=== PATIENT | male | born 1990 | race Caucasian/White ===

== ENCOUNTER 2017-03-07 01:25 | Emergency (ER) | payer OTHER ==
[2017-03-07 01:31] VITALS: BP 145/89; PULSE 87; RESP 18; TEMP 97.8
[2017-03-07] MEDS ORDERED: KETOROLAC 60 MG/2 ML VIAL IM STA (01:41)
[2017-03-07] MEDS ORDERED: ACETAMINOPHEN TAB 500 MG TAB PO STA (01:41)
--- NOTE | 2017-03-07 01:48 | ED ---
General Adult HPI - General Chief complaint: Dental/Oral Stated complaint: Dental Pain Time Seen by Provider: 03/07/17 01:25 Source: patient, RN notes reviewed Mode of arrival: ambulatory Limitations: no limitations - History of Present Illness Initial comments: This is a 26-year-old male who presents to the emergency department stating that he needs his was obtained from removed. Patient states he has an appointment in 2 weeks but the pain is getting worse and he would like something to help with the pain. Patient states she's been using a lot of Orajel but it is not helping him much. Patient denies any fever chills patient denies any swelling. Patient denies any injury or trauma. - Related Data Previous Rx's Medication Instructions Recorded Hydrocodone/Acetaminophen [[place] 1 each PO Q4HR PRN #20 tab 03/07/17 5-325] Ibuprofen [Motrin] 600 mg PO Q6HR PRN #20 tab 03/07/17 Allergies Allergy/AdvReac Type Severity Reaction Status Date / Time Antihistamines - Alkylamine Allergy Severe Confusion Verified 03/07/17 01:32 Review of Systems ROS Statement: Those systems with pertinent positive or pertinent negative responses have been documented in the HPI. ROS Other: All systems not noted in ROS Statement are negative. Past Medical History Past Medical History: No Reported History History of Any Multi-Drug Resistant Organisms: None Reported Past Surgical History: No Surgical Hx Reported Past Psychological History: No Psychological Hx Reported Smoking Status: Never smoker Past Alcohol Use History: None Reported Past Drug Use History: None Reported General Exam - General Exam Comments Initial Comments: GENERAL Patient is well-developed and well-nourished. Patient is in mild distress. EYES Patient's pupils are equal and round. Extraocular motion is intact SKIN Unremarkable NEURO The patient is alert and oriented 3 PYSCH Patient has normal interpersonal interactions. Mouth Patient's was sent to them. Be breaking through the gums and they are tender to palpation. There is no area that is red or swollen there is no abscess formation noted. Limitations: no limitations Course Vital Signs 03/07/17 01:29 Temperature 97.8 F Pulse Rate 87 Respiratory 18 Rate Blood Pressure 145/89 O2 Sat by Pulse 98 Oximetry Disposition Clinical Impression: Toothache Disposition: HOME SELF-CARE Instructions: Toothache (ED) Additional Instructions: Patient should follow-up with a dentist as soon as possible. Patient should take Motrin 600 mg every 6 hours. Patient should take [place] as prescribed Prescriptions: Hydrocodone/Acetaminophen [[place] 5-325] 1 each PO Q4HR PRN #20 tab PRN Reason: Pain Ibuprofen [Motrin] 600 mg PO Q6HR PRN #20 tab PRN Reason: For pain Referrals: None,Stated [Primary Care Provider] - 1-2 days Time of Disposition: 01:47
== END 2017-03-07 02:05 | disposition home or self-care (01) ==
LOC: EC 01:25
DX: K08.89 Other specified disorders of teeth and supporting structures (principal); Z88.8 Allergy status to other drugs, medicaments and biological substances
CPT/HCPCS: 99282; 96372; J1885

== ENCOUNTER 2020-04-18 14:45 | Emergency (ER) | payer SELFPAY ==
[2020-04-18 15:03] VITALS: BP 133/91; PULSE 86; TEMP 98.7
[2020-04-18] MEDS ORDERED: cefTRIAXone 250 MG VIAL IM STA (15:05)
[2020-04-18] MEDS ORDERED: metroNIDAZOLE 500 MG TAB PO STA (15:05)
[2020-04-18] MEDS ORDERED: AZITHROMYCIN 500 MG TAB PO STA (15:05)
--- NOTE | 2020-04-18 15:22 | ED ---
Male Urogenital HPI - General Chief complaint: Urogenital Stated complaint: Medication Refill Time Seen by Provider: 04/18/20 15:04 Source: patient, RN notes reviewed, old records reviewed Mode of arrival: ambulatory Limitations: no limitations - History of Present Illness Initial comments: Patient is a 29-year-old male presents emergency room today with his partner who presents emergency department for concern for needing treated for Trichomonas. His girlfriend tested positive for Trichomonas. Patient states that he has had slight dysuria. He denies any lesions over the penis or testicular pain. Patient states that he has had no significant penile drainage. He reports that his partners tested for chlamydia and gonorrhea and were negative. - Related Data Previous Rx's Medication Instructions Recorded Hydrocodone/Acetaminophen [[place] 1 each PO Q4HR PRN #20 tab 03/07/17 5-325] Ibuprofen [Motrin] 600 mg PO Q6HR PRN #20 tab 03/07/17 metroNIDAZOLE [Flagyl] 500 mg PO BID #14 tab 04/18/20 Allergies Allergy/AdvReac Type Severity Reaction Status Date / Time Antihistamines - Alkylamine Allergy Severe Confusion Verified 04/18/20 15:02 Review of Systems ROS Statement: Those systems with pertinent positive or pertinent negative responses have been documented in the HPI. ROS Other: All systems not noted in ROS Statement are negative. Past Medical History Past Medical History: No Reported History History of Any Multi-Drug Resistant Organisms: None Reported Past Surgical History: No Surgical Hx Reported Past Psychological History: No Psychological Hx Reported Smoking Status: Never smoker Past Alcohol Use History: None Reported Past Drug Use History: None Reported General Exam - General Exam Comments Initial Comments: Laboratory 29-year-old male. Limitations: no limitations General appearance: alert, in no apparent distress Head exam: Present: atraumatic, normocephalic, normal inspection Eye exam: Present: normal appearance, PERRL, EOMI. Absent: scleral icterus, conjunctival injection, periorbital swelling ENT exam: Present: normal exam, mucous membranes moist Neck exam: Present: normal inspection. Absent: tenderness, meningismus, lymphadenopathy Respiratory exam: Present: normal lung sounds bilaterally. Absent: respiratory distress, wheezes, rales, rhonchi, stridor Cardiovascular Exam: Present: regular rate, normal rhythm, normal heart sounds. Absent: systolic murmur, diastolic murmur, rubs, gallop, clicks GI/Abdominal exam: Present: soft, normal bowel sounds. Absent: distended, tenderness, guarding, rebound, rigid Back exam: Present: normal inspection Neurological exam: Present: alert, oriented X3, CN II-XII intact Psychiatric exam: Present: normal affect Skin exam: Present: warm, dry, intact, normal color. Absent: rash Course Vital Signs 04/18/20 14:59 Temperature 98.7 F Pulse Rate 86 Respiratory 17 Rate Blood Pressure 133/91 O2 Sat by Pulse 97 Oximetry Medical Decision Making - Medical Decision Making Patient is a 29-year-old male presents emergency room today for concern for a treatment for Trichomonas. His partner tested positive. His complaint of some mild dysuria. Urinalysis completed. Patient was treated for all STDs given Rocephin Flagyl and azithromycin emergency department. Ms. discharging them Patient on Flagyl 500 twice a day for the next week as well and advised to stop or not have intercourse for a week until after completing treatment. - Lab Data Lab Results 04/18/20 Range/Units 15:08 Urine Color Yellow Urine Appearance Clear (Clear) Urine pH 6.0 (5.0-8.0) Ur Specific [place] 1.023 (1.001-1.035) Urine Protein 1+ H (Negative) Urine Glucose (UA) Negative (Negative) Urine Ketones 3+ H (Negative) Urine Blood Negative (Negative) Urine Nitrite Negative (Negative) Urine Bilirubin 1+ H (Negative) Urine Urobilinogen 2.0 (<2.0) mg/dL Ur Leukocyte Esterase Small H (Negative) Urine RBC 2 (0-5) /hpf Urine WBC 13 H (0-5) /hpf Ur Squamous Epith Cells <1 (0-4) /hpf Urine Bacteria Rare H (None) /hpf Hyaline Casts 6 H (0-2) /lpf Urine Mucus Occasional H (None) /hpf Disposition Clinical Impression: Trichomonas contact Disposition: HOME SELF-CARE Condition: Good Instructions (If sedation given, give patient instructions): Trichomoniasis (ED) Additional Instructions: Patient is to take the entire course of antibiotics as prescribed. Recommended following up with primary care doctor if symptoms continue persist. Patient should not have intercourse for a week until completed treatment. Prescriptions: metroNIDAZOLE [Flagyl] 500 mg PO BID #14 tab Is patient prescribed a controlled substance at d/c from ED?: No Referrals: Mariano Hummel MD [Primary Care Provider] - 1-2 days Time of Disposition: 15:22
[2020-04-18 15:28] LABS: Appearance,Urine Clear (Clear); Bacteria,Urine Rare /hpf; Bilirubin,Urine 1+ (Negative); Blood,Urine Negative (Negative); Color,Urine Yellow; Glucose,Urine (UA) Negative (Negative); Hyaline Casts,Urine 6 /lpf (0-2); Ketones,Urine 3+ (Negative); Leukocyte Esterase,Urine Small (Negative); Mucus,Urine Occasional /hpf; Nitrite,Urine Negative (Negative); Protein,Urine 1+ (Negative); RBC,Urine 2 /hpf (0-5); Specific Gravity,Urine 1.023 (1.001-1.035); Squamous Epithelial Cell,Urine <1 /hpf (0-4); WBC,Urine 13 /hpf (0-5)
[2020-04-18 15:46] VITALS: RESP 20
== END 2020-04-18 15:46 | disposition home or self-care (01) ==
LOC: EC 14:45
DX: Z20.2 Contact with and (suspected) exposure to infections with a predominantly sexual mode of transmission (principal); R30.0 Dysuria; Z88.8 Allergy status to other drugs, medicaments and biological substances
CPT/HCPCS: 81001; 87491; 87591; 99283; 96372; J0696

== ENCOUNTER 2025-01-23 11:10 | Emergency (ER) | payer BC, OTHER ==
[2025-01-23] MEDS: ACETAMINOPHEN TAB 500 MG TAB PO STA (12:19)
[2025-01-23] MEDS: IBUPROFEN 800 MG TAB PO STA (12:20)
--- NOTE | 2025-01-23 14:31 | XR ---
EXAMINATION TYPE: XR knee complete LT DATE OF EXAM: 01/23/2025 2:08 PM COMPARISON: None CLINICAL INDICATION: Male, 34 years old with history of pain. lateral knee; PHH, pain TECHNIQUE: XR knee complete LT 3 views submitted. FINDINGS: No evidence of any acute osseous pathology, soft tissue swelling, or joint effusion is no fela. IMPRESSION: No acute osseous pathology. [facility], , 01/23/2025 2:28 PM
--- NOTE | 2025-01-23 14:44 | ED ---
General Adult HPI - General Chief complaint: Extremity Injury, Lower Stated complaint: [facility]-left knee injury Time Seen by Provider: 01/23/25 11:55 Source: patient, RN notes reviewed, old records reviewed Mode of arrival: ambulatory Limitations: no limitations - History of Present Illness Initial comments: Patient is a 34-year-old male who presents emergency department complaining of left knee pain. 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 No other injuries. Is concerned that he injured him and presents for further evaluation.States the pain is over the lateral aspect of the left knee. Normal range of motion but no significant pain with motion. - Related Data Previous Rx's Medication Instructions Recorded Hydrocodone/Acetaminophen [[place] 1 each PO Q4HR PRN #20 tab 03/07/17 5-325] Ibuprofen [Motrin] 600 mg PO Q6HR PRN #20 tab 03/07/17 metroNIDAZOLE [Flagyl] 500 mg PO BID #14 tab 04/18/20 Acetaminophen [Tylenol Extra 500 mg PO Q6H PRN 7 Days #28 packet 01/23/25 Strength] Ibuprofen [Motrin] 600 mg PO Q6HR PRN 7 Days #28 tab 01/23/25 Allergies Allergy/AdvReac Type Severity Reaction Status Date / Time Antihistamines - Alkylamine Allergy Severe Confusion Verified 01/23/25 11:22 Review of Systems ROS Statement: Those systems with pertinent positive or pertinent negative responses have been documented in the HPI. Review of Systems: CONST: Denies fever EYES: Denies blurry vision ENT: Denies nasal congestion C/V: Denies Chest pain RESP: Denies shortness of breath GI: Denies abdominal pain : Denies dysuria SKIN: Denies rash. MSK: Endorses left knee pain NEURO: Denies headache ROS Other: All systems not noted in ROS Statement are negative. Past Medical History Past Medical History: No Reported History History of Any Multi-Drug Resistant Organisms: None Reported Past Surgical History: No Surgical Hx Reported Past Psychological History: No Psychological Hx Reported Smoking Status: Never smoker Past Alcohol Use History: None Reported Past Drug Use History: None Reported General Exam - General Exam Comments Initial Comments: General: Appears in no acute distress. HEAD: Normal with no signs of head trauma. EYES: EOMI. ENT: Hearing grossly intact. RESPIRATORY: No respiratory distress. C/V: Regular rate and rhythm. ABD: Abdomen is nondistended. EXT: No obvious deformity. Normal range of motion. Able to hold the left knee in full extension. Tenderness palpation of the lateral aspect of the left knee. Pain with full flexion and full extension. Still able ambulate and bear weight. SKIN: No rashes or lesions observed on exposed skin. NEURO: Alert and oriented. Limitations: no limitations Course Vital Signs 01/23/25 01/23/25 11:20 14:54 Temperature 98.2 F 98.1 F Pulse Rate 89 80 Respiratory 20 18 Rate Blood Pressure 123/75 125/81 O2 Sat by Pulse 96 97 Oximetry Medical Decision Making - Medical Decision Making Was pt. sent in by a medical professional or institution (, PA, ALLERGY NURSE, urgent care, hospital, or long-term...) When possible be specific @ -No Did you speak to anyone other than the patient for history (EMS, parent, family, police, friend...)? What history was obtained from this source @ -No Did you review nursing and triage notes (agree or disagree)? Why? @ -I reviewed and agree with nursing and triage notes Were old charts reviewed (outside hosp., previous admission, EMS record, old EKG, old radiological studies, urgent care reports/EKG's, long-term records)? Report findings @ -No old charts were reviewed Differential Diagnosis (chest pain, altered mental status, abdominal pain women, abdominal pain men, vaginal bleeding, weakness, fever, dyspnea, syncope, headache, dizziness, GI bleed, back pain, seizure, CVA, palpatations, mental health, musculoskeletal)? @ -Differential Musculoskeletal Muscular strain, contusion, ligament sprain, fracture, arthritis, septic arthritis, bursitis, cellulitis, muscle spasm, nerve compression, DVT, arterial occlusion, herpes zoster, electrolyte abnormality, tumor.... This is not meant to be in all inclusive list EKG interpreted by me (3pts min.). @ -None done X-rays interpreted by me (1pt min.). @ -Knee x-ray negative for any obvious acute injury CT interpreted by me (1pt min.). @ -None done U/S interpreted by me (1pt. min.). @ -None done What testing was considered but not performed or refused? (CT, X-rays, U/S, labs)? Why? @ -None What meds were considered but not given or refused? Why? @ -None Did you discuss the management of the patient with other professionals (professionals i.e. , PA, ALLERGY NURSE, lab, RT, psych nurse, social services counselor, outboard motor tester, teacher, special assets officer, supervisor case loading)? Give summary @ -No Was smoking cessation discussed for >3mins.? @ -No Was critical care preformed (if so, how long)? @ -No Were there social determinants of health that impacted care today? How? (Homelessness, low income, unemployed, alcoholism, drug addiction, [employer], low edu. Level, literacy, decrease access to med. care, fdc, rehab)? @ -No Was there de-escalation of care discussed even if they declined (Discuss DNR or withdrawal of care, Hospice)? DNR status @ -No What co-morbidities impacted this encounter? (DM, HTN, Smoking, COPD, CAD, Cancer, CVA, ARF, Chemo, Hep., AIDS, mental health diagnosis, sleep apnea, morbid obesity)? @ -None Was patient admitted / discharged? Hospital course, mention meds given and route, prescriptions, significant lab abnormalities, going to OR and other pertinent info. @ -Based on patient's presentation and physical exam, presents with left knee pain. We obtain x-rays. Vitals are within acceptable limits. Patient administered analgesia medications. X-ray showed no obvious acute injury. I discussed results with the patient. He will be given a knee immobilizer. He already has a cane. Recommended weight- bear as tolerated and follow-up with orthopedic surgery if symptoms or not improved in few weeks. He was in agreement this plan. Strict return precautions discussed. I instructed the patient to follow up with their PCP in the next 1-3 days. . I explained that the patient should return to the emergency department if they experience any worsening symptoms. Strict return precautions were discussed with the patient. The patient expressed understanding of these instructions. I answered all questions that the patient had. The patient was discharged home in good condition with their prescriptions and follow up information. Undiagnosed new problem with uncertain prognosis? @ -No Drug Therapy requiring intensive monitoring for toxicity (Heparin, Nitro, Insulin, Cardizem)? @ -No Were any procedures done? @ -No Diagnosis/symptom? @ -Left knee sprain Acute, or Chronic, or Acute on Chronic? @ -Acute Uncomplicated (without systemic symptoms) or Complicated (systemic symptoms)? @ -Uncomplicated Side effects of treatment? @ -No Exacerbation, Progression, or Severe Exacerbation? @ -No Poses a threat to life or bodily function? How? (Chest pain, [place], [place], pneumonia, PE, COPD, DKA, ARF, appy, cholecystitis, CVA, Diverticulitis, Homicidal, Suicidal, threat to staff... and all critical care pts) @ -Unlikely at this time Disposition Clinical Impression: Left knee sprain Disposition: HOME SELF-CARE Condition: Good Instructions (If sedation given, give patient instructions): Knee Sprain (ED) Additional Instructions: Your diagnosis is a left knee sprain. He has knee immobilizer as needed for stability of the knee with ambulation. Use the cane that you have at home to help with ambulation. If your symptoms are improving, no need for follow-up with orthopedic surgery however if you feel like they are not improving, you can reach out to them at the middle to the end of next week. Return to the ER for any worsening symptoms. Prescriptions: Ibuprofen [Motrin] 600 mg PO Q6HR PRN 7 Days #28 tab PRN Reason: Pain Acetaminophen [Tylenol Extra Strength] 500 mg PO Q6H PRN 7 Days #28 packet PRN Reason: Pain Is patient prescribed a controlled substance at d/c from ED?: No Referrals: Nonstaff,Physician [Primary Care Provider] - 1-2 days Venecia Solano DO [Doctor of Osteopathic Medicine] - 1-2 days Time of Disposition: 14:43
[2025-01-23 14:55] VITALS: BP 125/81; PULSE 80; RESP 18; TEMP 98.1
== END 2025-01-23 14:55 | disposition home or self-care (01) ==
LOC: EC 11:10
DX: S83.92XA Sprain of unspecified site of left knee, initial encounter (principal); Z88.8 Allergy status to other drugs, medicaments and biological substances; X50.1XXA Overexertion from prolonged static or awkward postures, initial encounter; Y99.0 Civilian activity done for income or pay
CPT/HCPCS: 73562; 99283; L1830

== ENCOUNTER 2025-01-31 07:49 | Emergency (ER) | payer BC, OTHER ==
[2025-01-31 07:55] VITALS: BP 140/78; PULSE 91; RESP 20; TEMP 97.9
--- NOTE | 2025-01-31 08:29 | ED ---
General Adult HPI - General Chief complaint: Extremity Injury, Lower Stated complaint: Left knee complications, anxiety Time Seen by Provider: 01/31/25 07:56 Source: patient, RN notes reviewed Mode of arrival: ambulatory Limitations: no limitations - History of Present Illness Initial comments: Patient is a 34-year-old male present to the emergency department with concerns for left knee pain. Patient did twist his knee at work a week ago and had a fall. Patient is having some discomfort of the knee still. Discomfort is rated 1 at rest and 3 with movement. Patient has been using a compression stocking. Patient did research on the Internet and was concerned he may have an aneurysm. Patient became very anxious and had a panic attack that brought him in. Patient states he was very anxious when he got here. Patient states this has resolved and he is no longer feeling anxious. Patient does have a family history of brain aneurysms. Discomfort is left anterior knee. - Related Data Previous Rx's Medication Instructions Recorded Hydrocodone/Acetaminophen [[place] 1 each PO Q4HR PRN #20 tab 03/07/17 5-325] Ibuprofen [Motrin] 600 mg PO Q6HR PRN #20 tab 03/07/17 metroNIDAZOLE [Flagyl] 500 mg PO BID #14 tab 04/18/20 Acetaminophen [Tylenol Extra 500 mg PO Q6H PRN 7 Days #28 packet 01/23/25 Strength] Ibuprofen [Motrin] 600 mg PO Q6HR PRN 7 Days #28 tab 01/23/25 Allergies Allergy/AdvReac Type Severity Reaction Status Date / Time Antihistamines - Alkylamine Allergy Severe Confusion Verified 01/31/25 07:55 Review of Systems ROS Statement: Those systems with pertinent positive or pertinent negative responses have been documented in the HPI. ROS Other: All systems not noted in ROS Statement are negative. Constitutional: Denies: fever Eyes: Denies: eye pain ENT: Denies: ear pain Respiratory: Denies: dyspnea Cardiovascular: Denies: chest pain Musculoskeletal: Reports: as per HPI Past Medical History Past Medical History: No Reported History History of Any Multi-Drug Resistant Organisms: None Reported Past Surgical History: No Surgical Hx Reported Additional Past Surgical History / Comment(s): Right ankle surgery Past Psychological History: No Psychological Hx Reported Smoking Status: Never smoker Past Alcohol Use History: None Reported Past Drug Use History: None Reported General Exam Limitations: no limitations General appearance: alert, in no apparent distress Head exam: Present: normocephalic Eye exam: Present: normal appearance Neck exam: Present: normal inspection Respiratory exam: Present: normal lung sounds bilaterally Cardiovascular Exam: Present: regular rate, normal rhythm Expanded Peripheral pulses: 2+: Posterior Tibialis (L), Dorsalis Pedis (L) Extremities exam: Present: tenderness (Mild tenderness left anterior knee in the region of the medial meniscus. No posterior tenderness.), other (Distally the extremity is neurovascular intact). Absent: calf tenderness Neurological exam: Present: alert. Absent: motor sensory deficit Psychiatric exam: Present: normal affect, normal mood Skin exam: Present: normal color Course Vital Signs 01/31/25 07:51 Temperature 97.9 F Pulse Rate 91 Respiratory 20 Rate Blood Pressure 140/78 O2 Sat by Pulse 91 L Oximetry Medical Decision Making - Medical Decision Making Was pt. sent in by a medical professional or institution (, PA, FINANCIAL WELLNESS COACH, urgent care, hospital, or fpc...) When possible be specific @ -No Did you speak to anyone other than the patient for history (EMS, parent, family, police, friend...)? What history was obtained from this source @ -No Did you review nursing and triage notes (agree or disagree)? Why? @ -I reviewed and agree with nursing and triage notes Were old charts reviewed (outside hosp., previous admission, EMS record, old EKG, old radiological studies, urgent care reports/EKG's, fpc records)? Report findings @ -Previous visit reviewed including x-ray results Differential Diagnosis (chest pain, altered mental status, abdominal pain women, abdominal pain men, vaginal bleeding, weakness, fever, dyspnea, syncope, headache, dizziness, GI bleed, back pain, seizure, CVA, palpatations, mental health, musculoskeletal)? @ -Differential Musculoskeletal Muscular strain, contusion, ligament sprain, fracture, arthritis, septic arthritis, bursitis, cellulitis, muscle spasm, nerve compression, DVT, arterial occlusion, herpes zoster, electrolyte abnormality, tumor.... This is not meant to be in all inclusive list EKG interpreted by me (3pts min.). @ -As above X-rays interpreted by me (1pt min.). @ -None done CT interpreted by me (1pt min.). @ -None done U/S interpreted by me (1pt. min.). @ -None done What testing was considered but not performed or refused? (CT, X-rays, U/S, labs)? Why? @ -Considered x-rays however these were just done recently. No new injury. What meds were considered but not given or refused? Why? @ -None Did you discuss the management of the patient with other professionals (professionals i.e. Dr., PA, FINANCIAL WELLNESS COACH, lab, RT, psych nurse, social media marketer, paperhanger supervisor, teacher, armed custom protection officer, behavioral health case manager)? Give summary @ -No Was smoking cessation discussed for >3mins.? @ -No Was critical care preformed (if so, how long)? @ -No Were there social determinants of health that impacted care today? How? (Homelessness, low income, unemployed, alcoholism, drug addiction, transportation, low edu. Level, literacy, decrease access to med. care, residential, rehab)? @ -No Was there de-escalation of care discussed even if they declined (Discuss DNR or withdrawal of care, Hospice)? DNR status @ -No What co-morbidities impacted this encounter? (DM, HTN, Smoking, COPD, CAD, Cancer, CVA, ARF, Chemo, Hep., AIDS, mental health diagnosis, sleep apnea, morbid obesity)? @ -None Was patient admitted / discharged? Hospital course, mention meds given and route, prescriptions, significant lab abnormalities, going to OR and other pertinent info. @ -Patient presents with left knee discomfort and anxiety attack. Evaluation consistent with patient's history of injury and I also have concern for possible meniscus injury. No signs or concerns for aneurysm. Distal pulses intact. Area of discomfort is not in the area of arterial flow. Patient will be discharged with recommended continued follow-up with [facility] Undiagnosed new problem with uncertain prognosis? @ -No Drug Therapy requiring intensive monitoring for toxicity (Heparin, Nitro, Insulin, Cardizem)? @ -No Were any procedures done? @ -No Diagnosis/symptom? @ -Left knee pain Acute, or Chronic, or Acute on Chronic? @ -Acute Uncomplicated (without systemic symptoms) or Complicated (systemic symptoms)? @ -Default Side effects of treatment? @ -No Exacerbation, Progression, or Severe Exacerbation? @ -No Poses a threat to life or bodily function? How? (Chest pain, [place], [place], pneumonia, PE, COPD, DKA, ARF, appy, cholecystitis, CVA, Diverticulitis, Homicidal, Suicidal, threat to staff... and all critical care pts) @ -No Disposition Clinical Impression: Left knee injury Disposition: HOME SELF-CARE Condition: Stable Instructions (If sedation given, give patient instructions): Knee Sprain (ED) Additional Instructions: Ice to affected area. [id number] Motrin if needed. Please follow-up with [facility] as directed. Return for increased pain, swelling, worsening or changing symptoms or other concerns. Is patient prescribed a controlled substance at d/c from ED?: No Referrals: None,Stated [Primary Care Provider] - 1-2 days Forms: Area PCPs Time of Disposition: 08:29
== END 2025-01-31 09:14 | disposition home or self-care (01) ==
LOC: EC 07:49
DX: S89.92XA Unspecified injury of left lower leg, initial encounter (principal); F41.0 Panic disorder [episodic paroxysmal anxiety]; Z88.8 Allergy status to other drugs, medicaments and biological substances; W01.0XXA Fall on same level from slipping, tripping and stumbling without subsequent striking against object, initial encounter
CPT/HCPCS: 99283

== ENCOUNTER 2025-05-17 16:00 | Emergency (ER) | payer SELFPAY ==
[2025-05-17 16:24] VITALS: RESP 18
--- NOTE | 2025-05-17 17:44 | ED ---
Skin/Abscess/FB HPI - General Chief complaint: Skin/Abscess/Foreign Body Stated complaint: Rash Time Seen by Provider: 05/17/25 17:39 Source: patient, RN notes reviewed Mode of arrival: ambulatory Limitations: no limitations - History of Present Illness Initial comments: 34-year-old male presenting for rash on bilateral palms of hands and soles of feet x 1 day with associated sore throat. States he was exposed to napf-nkxh-unl-mouth. Reports pain and itching to the bilateral hands and feet. Denies difficulty breathing or swallowing. - Related Data Previous Rx's Medication Instructions Recorded Hydrocodone/Acetaminophen [Jackson 1 each PO Q4HR PRN #20 tab 03/07/17 5-325] Ibuprofen [Motrin] 600 mg PO Q6HR PRN #20 tab 03/07/17 metroNIDAZOLE [Flagyl] 500 mg PO BID #14 tab 04/18/20 Acetaminophen [Tylenol Extra 500 mg PO Q6H PRN 7 Days #28 packet 01/23/25 Strength] Ibuprofen [Motrin] 600 mg PO Q6HR PRN 7 Days #28 tab 01/23/25 Hydrocortisone Cream 1 applic TOPICAL BID #28 gm 05/17/25 [Hydrocortisone 2.5% Cream] Allergies Allergy/AdvReac Type Severity Reaction Status Date / Time Antihistamines - Alkylamine Allergy Severe Confusion Verified 05/17/25 16:24 Review of Systems ROS Statement: Those systems with pertinent positive or pertinent negative responses have been documented in the HPI. ROS Other: All systems not noted in ROS Statement are negative. Past Medical History Past Medical History: No Reported History History of Any Multi-Drug Resistant Organisms: None Reported Past Surgical History: No Surgical Hx Reported Additional Past Surgical History / Comment(s): Right ankle surgery Past Psychological History: No Psychological Hx Reported Smoking Status: Never smoker Past Alcohol Use History: None Reported Past Drug Use History: None Reported General Exam Limitations: no limitations General appearance: alert, in no apparent distress Head exam: Present: atraumatic, normocephalic, normal inspection Eye exam: Present: normal appearance, PERRL, EOMI. Absent: scleral icterus, conjunctival injection, periorbital swelling ENT exam: Present: normal exam, normal oropharynx, mucous membranes moist Neck exam: Present: normal inspection. Absent: tenderness, meningismus, lymphadenopathy Respiratory exam: Present: normal lung sounds bilaterally. Absent: respiratory distress, wheezes, rales, rhonchi, stridor Cardiovascular Exam: Present: regular rate, normal rhythm, normal heart sounds. Absent: systolic murmur, diastolic murmur, rubs, gallop, clicks Neurological exam: Present: alert, oriented X3 Psychiatric exam: Present: normal affect, normal mood Skin exam: Present: warm, dry, intact, normal color, rash (Maculopapular rash present on palms of hands and soles of feet) Course Vital Signs 05/17/25 05/17/25 16:20 18:01 Temperature 98.7 F 98.2 F Pulse Rate 101 H 96 Respiratory 18 18 Rate Blood Pressure 141/84 136/80 O2 Sat by Pulse 94 L 96 Oximetry Medical Decision Making - Medical Decision Making Was pt. sent in by a medical professional or institution (, PA, BICYCLE MECHANIC, urgent care, hospital, or [facility]...) When possible be specific @ -No Did you speak to anyone other than the patient for history (EMS, parent, family, police, friend...)? What history was obtained from this source @ -No Did you review nursing and triage notes (agree or disagree)? Why? @ -I reviewed and agree with nursing and triage notes Were old charts reviewed (outside hosp., previous admission, EMS record, old EKG, old radiological studies, urgent care reports/EKG's, [facility] records)? Report findings @ -No old charts were reviewed Differential Diagnosis (chest pain, altered mental status, abdominal pain women, abdominal pain men, vaginal bleeding, weakness, fever, dyspnea, syncope, headache, dizziness, GI bleed, back pain, seizure, CVA, palpatations, mental health, musculoskeletal)? @ -Viral upper respiratory infection, strep pharyngitis, rrpv-qfoe-kdb-mouth, contact dermatitis EKG interpreted by me (3pts min.). @ -None X-rays interpreted by me (1pt min.). @ -None done CT interpreted by me (1pt min.). @ -None done U/S interpreted by me (1pt. min.). @ -None done What testing was considered but not performed or refused? (CT, X-rays, U/S, labs)? Why? @ -Offered viral testing however patient refuses What meds were considered but not given or refused? Why? @ -None Did you discuss the management of the patient with other professionals (professionals i.e. , PA, BICYCLE MECHANIC, lab, RT, psych nurse, manager social services, sales planning analyst, teacher, aoc airspace control officer, registered nurse hh case manager)? Give summary @ -No Was smoking cessation discussed for >3mins.? @ -No Was critical care preformed (if so, how long)? @ -No Were there social determinants of health that impacted care today? How? (Homelessness, low income, unemployed, alcoholism, drug addiction, transpo rtation, low edu. Level, literacy, decrease access to med. care, senior care, rehab)? @ -No Was there de-escalation of care discussed even if they declined (Discuss DNR or withdrawal of care, Hospice)? DNR status @ -No What co-morbidities impacted this encounter? (DM, HTN, Smoking, COPD, CAD, Cancer, CVA, ARF, Chemo, Hep., AIDS, mental health diagnosis, sleep apnea, morbid obesity)? @ -None Was patient admitted / discharged? Hospital course, mention meds given and route, prescriptions, significant lab abnormalities, going to OR and other pertinent info. @ -Discharge. 34-year-old male presenting for rash to bilateral hands and feet x 1 day with associated sore throat. States he was exposed to orba-odqu-eok-mouth. History and physical examination consistent with jzsi-lgiq-wgz-mouth. Patient is also requesting gabapentin for "cazb-wuu-fuwvxii" in bilateral lower extremities. Patient was given 1 dose of gabapentin in the ER however directed to follow-up with PCP. Prescribed steroid cream to use as needed for hand/feet itchiness. Appropriate return precautions and supportive care discussed. Case was discussed with my ED attending Dr. Ryder Undiagnosed new problem with uncertain prognosis? @ -No Drug Therapy requiring intensive monitoring for toxicity (Heparin, Nitro, Insulin, Cardizem)? @ -No Were any procedures done? @ -No Diagnosis/symptom? @ -Hqsf-kpov-mde-mouth disease Acute, or Chronic, or Acute on Chronic? @ -Acute Uncomplicated (without systemic symptoms) or Complicated (systemic symptoms)? @ -Uncomplicated Side effects of treatment? @ -No Exacerbation, Progression, or Severe Exacerbation? @ -No Poses a threat to life or bodily function? How? (Chest pain, [place], [place], pneumonia, PE, COPD, DKA, ARF, appy, cholecystitis, CVA, Diverticulitis, Homicidal, Suicidal, threat to staff... and all critical care pts) @ -No Disposition Clinical Impression: Hand, foot and mouth disease Disposition: HOME SELF-CARE Condition: Stable Instructions (If sedation given, give patient instructions): Hand, Foot, and Mouth Disease (ED) Additional Instructions: Apply steroid cream to the affected areas. Please follow-up with your PCP as discussed. Take ibuprofen or Tylenol as needed for pain. Please return to the Emergency Department if symptoms worsen or any other concerns. Prescriptions: Hydrocortisone Cream [Hydrocortisone 2.5% Cream] 1 applic TOPICAL BID #28 gm Is patient prescribed a controlled substance at d/c from ED?: No Referrals: Nonstaff,Physician [Primary Care Provider] - 1-2 days Time of Disposition: 17:44
[2025-05-17] MEDS: GABAPENTIN 300 MG CAP PO STA (17:53)
[2025-05-17] MEDS: TRIAMCINOLONE ACET 0.1% OINTMENT 15 GM TUBE TOPICAL SCH (17:53)
[2025-05-17 18:05] VITALS: BP 136/80; PULSE 96; TEMP 98.2
== END 2025-05-17 18:05 | disposition home or self-care (01) ==
LOC: EC 16:00
DX: B08.4 Enteroviral vesicular stomatitis with exanthem (principal); Z88.8 Allergy status to other drugs, medicaments and biological substances
CPT/HCPCS: 99282